=== PATIENT | female | born 1970 | race African-American/Black ===

== ENCOUNTER 2018-01-12 09:22 | Outpatient (CLI) | payer OTHER ==
--- NOTE | 2018-01-12 12:00 | ULT ---
THYROID ULTRASOUND: Indication: History of abnormal thyroid labs and obesity. FINDINGS: The right thyroid lobe measures 3.5 x 1.1 x 1.2 cm. The left thyroid lobe measures 3.5 x 2.0 x 2.2 cm . The thyroid isthmus measures 0.5 cm. There is a solid well circumscribed hyperechoic mass measuring 1.5 cm within the mid to lower pole of the left thyroid gland that is wider than is tall and consistent with a TIRADS 3 lesion. There is an additional hyperechoic, mixed solid and cystic, mass involving the left thyroid isthmus t hat is well circumscribed and wider than tall without associated calcifications consistent with a TIR ADS 2 lesion. No focal lesion is identified within the right thyroid gland. IMPRESSION: 1. 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 Fol low up examination in 1 year is recommended. 2. TIRADS 2 lesion within the thyroid isthmus. No follow up is recommended. POS: [facility]
== END 2018-01-12 09:23 | disposition home or self-care (01) ==
LOC: MADULT 09:22
PROVIDERS: ATTEND Family Medicine
DX: R94.6 Abnormal results of thyroid function studies (principal); E07.9 Disorder of thyroid, unspecified
CPT/HCPCS: 76536

== ENCOUNTER 2019-12-02 11:11 | Outpatient (CLI) | payer OTHER ==
[2019-12-02 11:54] LABS: ALT (SGPT) 58 U/L (8-55); AST (SGOT) 33 U/L (5-34); Albumin 3.8 g/dL (3.5-5.0); Alkaline Phosphatase 77 U/L (40-110); Anion Gap 17 mmol/L (10-20); BUN (Urea Nitrogen) 16 mg/dL (7.0-18.7); Bilirubin, Total 0.3 mg/dL (0.2-1.2); Calc. Creatinine Clearance 0 mL/min (70-130); Calcium 9.1 mg/dL (7.8-10.44); Carbon Dioxide 22 mmol/L (22-29); Cardiac Risk 2.5 (Less than 4.5); Chloride 105 mmol/L (98-107); Cholesterol 172 mg/dl (< 200 Desired); Estimated GFR-MDRD 49; Globulin 5.2 g/dL (2.4-3.5); Glucose 182 mg/dL (70-105); HDL Cholesterol 70 mg/dL (>60 Neg Risk); LDL Cholesterol, Calculated 71 mg/dL; Potassium 4.3 mmol/L (3.5-5.1); Sodium 140 mmol/L (136-145); Triglycerides 157 mg/dL (Less than 150); Uric Acid 9.3 mg/dL (2.6-6.0)
[2019-12-02 12:26] LABS: #Basophils 0.1 thou/uL (0.0-0.2); #Lymphocytes 2.7 thou/uL (1.20-3.40); #Monocytes 0.6 thou/uL (0.11-0.59); #Neutrophils 2.2 thou/uL (1.40-6.50); %Basophils 1.5 % (0.0-1.0); %Eosinophils 0.4 % (0.0-10.0); %Lymphocytes 48.1 % (21.0-51.0); Anisocytosis SLIGHT = 6-15 cells (100X) (0-5/hpf); Hemoglobin 13.9 g/dL (12.0-16.0); Hypochromia SLIGHT = 6-15 cells (100X) (0-5/hpf); MDiff Complete? YES; Mean Corpuscular HGB CONC 29.7 g/dL (32.0-36.0); Mean Corpuscular Hemoglobin 29.1 pg (27.0-31.0); Mean Corpuscular Volume 98.2 fL (78.0-98.0); Platelet Count 253 thou/uL (130-400); Platelet Morphology Comment Appears Adequate; RBC Distribution Width 17.5 % (11.5-14.5); Red Blood Cell (RBC) Count 4.78 mill/uL (4.20-5.40); White Blood Cell (WBC) Count 5.6 thou/uL (4.8-10.8)
[2019-12-02 17:26] LABS: Hemoglobin A1c 7.5 % (4.0-6.0)
== END 2019-12-02 11:12 | disposition home or self-care (01) ==
LOC: MADLAB 11:11
PROVIDERS: ATTEND Family Medicine
DX: E11.22 Type 2 diabetes mellitus with diabetic chronic kidney disease (principal); N18.3 Chronic kidney disease, stage 3 (moderate); E11.69 Type 2 diabetes mellitus with other specified complication; M1A.00X0 Idiopathic chronic gout, unspecified site, without tophus (tophi)
CPT/HCPCS: 80053; 80061; 82306; 83036; 84550; 85025

== ENCOUNTER 2020-04-22 12:56 | Emergency (ER) | payer OTHER ==
[2020-04-22] MEDS ORDERED: Acetaminophen 500 MG TAB ONE (13:26)
[2020-04-22] MEDS ORDERED: predniSONE 20 MG TAB ONE (13:26)
[2020-04-22 13:50] LABS: #Lymphocytes 1.5 thou/uL (1.20-3.40); #Monocytes 0.4 thou/uL (0.11-0.59); #Neutrophils 3.6 thou/uL (1.40-6.50); %Basophils 0.7 % (0.0-1.0); %Eosinophils 0.4 % (0.0-10.0); %Lymphocytes 26.8 % (21.0-51.0); %Monocytes 7.3 % (0.0-10.0); %Neutrophils 64.8 % (42.0-75.0); Hemoglobin 12.9 g/dL (12.0-16.0); Mean Corpuscular HGB CONC 32.3 g/dL (32.0-36.0); Mean Corpuscular Hemoglobin 31.2 pg (27.0-31.0); Mean Corpuscular Volume 96.7 fL (78.0-98.0); Mean Platelet Volume 6.9 fL (7.4-10.4); Platelet Count 246 thou/uL (130-400); RBC Distribution Width 13.1 % (11.5-14.5); Red Blood Cell (RBC) Count 4.13 mill/uL (4.20-5.40); White Blood Cell (WBC) Count 5.6 thou/uL (4.8-10.8)
--- NOTE | 2020-04-22 13:54 | RAD ---
Exam:3 views left ankle HISTORY: Swelling. Pain. COMPARISON: None FINDINGS: Soft tissue swelling. Atherosclerosis. Preserved joint spaces. No fracture, cortical irregularity or periosteal reaction. Calcaneal spurring at the plantar aponeurosis insertion site. Mild degenerative changes of the midfoot. IMPRESSION: Soft tissue swelling without evidence of fracture.
[2020-04-22 14:09] LABS: ALT (SGPT) 27 U/L (8-55); AST (SGOT) 30 U/L (5-34); Albumin 3.9 g/dL (3.5-5.0); Alkaline Phosphatase 67 U/L (40-110); Anion Gap 18 mmol/L (10-20); BUN (Urea Nitrogen) 9 mg/dL (7.0-18.7); Bilirubin, Total 0.5 mg/dL (0.2-1.2); Calc. Creatinine Clearance 0 mL/min (70-130); Calcium 8.9 mg/dL (7.8-10.44); Carbon Dioxide 21 mmol/L (22-29); Chloride 105 mmol/L (98-107); Estimated GFR-MDRD 58; Globulin 4.8 g/dL (2.4-3.5); Glucose 130 mg/dL (70-105); Potassium 3.4 mmol/L (3.5-5.1); Protein, Total 8.7 g/dL (6.0-8.3); Sodium 141 mmol/L (136-145)
== END 2020-04-22 15:24 | disposition home or self-care (01) ==
LOC: MADERS 12:56
DX: M10.9 Gout, unspecified (principal); E11.9 Type 2 diabetes mellitus without complications; I10 Essential (primary) hypertension; J45.909 Unspecified asthma, uncomplicated; Z21 Asymptomatic human immunodeficiency virus [HIV] infection status; F17.220 Nicotine dependence, chewing tobacco, uncomplicated; F20.9 Schizophrenia, unspecified; F31.9 Bipolar disorder, unspecified; Z79.84 Long term (current) use of oral hypoglycemic drugs; Z79.82 Long term (current) use of aspirin; Z79.899 Other long term (current) drug therapy
CPT/HCPCS: 36415; 80053; 84550; 85025; 86140; J7512